=== PATIENT | female | born 1995 | race Caucasian/White ===

== ENCOUNTER 2017-03-10 14:33 | Emergency (ER) | payer OTHER ==
[~2017-03-10] VITALS: Ht 160 cm; Wt 80.0 kg
[2017-03-10 14:36] VITALS: Ht 160 cm; Wt 80.0 kg
--- NOTE | 2017-03-10 16:00 | RADRPT ---
PROCEDURE: XR Finger. CLINICAL INDICATION: Trauma. Right fifth finger pain. TECHNIQUE: Three views. Frontal, lateral, and oblique. COMPARISON: None available FINDINGS: There is no fracture or dislocation. The soft tissues are normal. Articular surfaces are intact. There is no lytic or blastic lesion. There is no radiopaque foreign body. IMPRESSION: 1. Normal images of the right fifth finger. RPTAT: QQ .Jez Bahena MD, MD Date Time Electronically viewed and signed by .Jez Bahena MD, MD on 03/10/2017 16:00 .R/
[2017-03-10] MEDS ORDERED: IBUP-1542 PO (16:11)
--- NOTE | 2017-03-10 16:15 | ERD ---
ER Documentation Chief Complaint Date/Time DATE: 03/10/17 TIME: 16:14 Chief Complaint right pinky pain/injury HPI 21-year-old female complains of inability to extend her right fifth digit. It started 2 days ago after picking up a box but she denies any fall. She denies any bleeding or lacerations. ROS All systems reviewed and are negative except as per history of present illness. Medications Home Meds Active Scripts Ibuprofen* (Motrin*) 600 Mg Tab, 600 MG PO Q6, #15 TAB Prov:JENNY FENG MD 03/10/17 Allergies Allergies: Coded Allergies: No Known Allergies (Verified Allergy, 02/12/12) PMhx/Soc History of Surgery: No Anesthesia Reaction: No Hx Neurological Disorder: No Hx Respiratory Disorders: No Hx Cardiac Disorders: No Hx Psychiatric Problems: No Hx Miscellaneous Medical Probl: No Hx Alcohol Use: No Hx Substance Use: No Hx Tobacco Use: No Physical Exam Vitals Vital Signs Date Time Temp Pulse Resp B/P Pulse Ox O2 Delivery O2 Flow Rate FiO2 03/10/17 14:36 98.1 80 18 138/78 99 Physical Exam Const: [] Alert, not ill-appearing. Head: Atraumatic Eyes: Normal Conjunctiva ENT: Normal External Ears, Nose and Mouth. Neck: Full range of motion..~ No meningismus. Resp: Clear to auscultation bilaterally Cardio: Regular rate and rhythm, no murmurs Abd: Soft, non tender, non distended. Normal bowel sounds Skin: No petechiae or rashes Back: No midline or flank tenderness Ext: No cyanosis, or edema. Patient has a mallet finger deformity in the right fifth digit at the DIP joint. There is a deficit to extension of the DIP joint although flexion is intact. There is no erythema or signs of ischemia. Neur: Awake and alert Psych: Normal Mood and Affect Results 24 hrs Current Medications Medications (Trade) Dose Ordered Sig/Elena Route PRN Reason Start Time Stop Time Status Last Admin Dose Admin Ibuprofen (Motrin) 600 mg ONCE ONCE PO 03/10/17 16:30 03/10/17 16:31 03/10/17 16:09 Procedures/MDM X-ray right pinky finger 2V Interpreted by me: Bones: [No fracture] Joints: [No dislocation] Foreign body: [None] impression-normal right pinky finger x-ray. Departure Diagnosis: Primary Impression: Mallet finger Laterality: right Qualified Code: M20.011 - Mallet finger of right hand Condition: Stable Patient Instructions: Mallet Finger Referrals: SIVA BAUTISTA MD [facility] Additional Instructions: X-rays normal. Likely tendon rupture. Keep finger in splint until evaluation by hand surgeon. May need authorization from primary Dr. for hand surgeon. Return otherwise for new or worsening symptoms. JENNY FENG MD Mar 10, 2017 16:15
[2017-03-10] MEDS ORDERED: IBUPROFEN 600 MG TAB PO ONE (16:30)
[2017-03-10 16:43] VITALS: BP 136/75; PULSE 29; RESP 20; TEMP 98
== END 2017-03-10 16:47 | disposition home or self-care (01) ==
LOC: FTE 14:33
DX: M20.011 Mallet finger of right finger(s) (principal)
CPT/HCPCS: 29130; 73140; Z7502; Z7610